=== PATIENT | female | born 1985 | race Caucasian/White ===

== ENCOUNTER 2023-12-02 07:04 | Inpatient (IN) | payer OTHER ==
[~2023-12-02] VITALS: Ht 160 cm; Wt 69.4 kg
[2023-12-02 06:58] VITALS: O2SAT 100
[2023-12-02 07:12] LABS: HCG,QUAL RESULT NEGATIVE (NEGATIVE)
[2023-12-02] MEDS ORDERED: CEFAZOLIN SOD 2 GM in D5W 50 ML IV ONE (07:15)
[2023-12-02] MEDS ORDERED: MEPERIDINE HCL/PF 25 MG/ML DISP.SYRIN IVP PRN (08:15)
[2023-12-02] MEDS ORDERED: hydrALAZINE HCL 20 MG/ML VIAL IVP PRN (08:15)
[2023-12-02] MEDS ORDERED: LR 1,000 ML IV SCH (08:15)
[2023-12-02] MEDS ORDERED: LABETALOL 100 MG/ 20ML VIAL IVP PRN (08:15)
[2023-12-02] MEDS ORDERED: ACETAMINOPHEN I.V. 1000 MG 100 ML IV ONE (08:39)
[2023-12-02] MEDS ORDERED: HYDROcodone/ACETAMIN 5-325 MG TAB (NORCO/ VICODIN) PO PRN (09:15)
[2023-12-02] MEDS ORDERED: NALOXONE HCL 0.4 MG/ML AMP (NARCAN) IVP PRN ×2 (09:15)
[2023-12-02] MEDS ORDERED: D5/0.45 NS 1,000 ML IV SCH (09:15)
[2023-12-02] MEDS ORDERED: DEXAMETHASONE SOD PHOSPHATE 4 MG/ML VIAL ONE (09:17)
[2023-12-02] MEDS ORDERED: SUGAMMADEX SODIUM 200 MG/2 ML VIAL IV ONE (09:17)
[2023-12-02] MEDS ORDERED: HYDROmorphone 1 MG/ML INJ. CARTRIDGE ONE ×2 (09:32→10:17)
[2023-12-02] MEDS: METOCLOPRAMIDE HCL 10 MG/2 ML VIAL IVP PRN (09:40)
[2023-12-02] MEDS ORDERED: METOCLOPRAMIDE HCL 10 MG/2 ML VIAL ONE (09:40)
[2023-12-02] MEDS: HYDROmorphone 1 MG/ML INJ. CARTRIDGE IVP PRN ×2 (09:48→10:18)
[2023-12-02] MEDS ORDERED: HYDROcodone/ACETAMIN 5-325 MG TAB (NORCO/ VICODIN) ONE (12:22)
[2023-12-02] MEDS: HYDROcodone/ACETAMIN 5-325 MG TAB (NORCO/ VICODIN) PO PRN (12:22)
[2023-12-02 13:13] VITALS: BP_SYST 105; PULSE 72; RESP 17
== END 2023-12-03 12:39 | disposition home or self-care (01) | DRG 419 ==
LOC: SMU 07:04 → EDSTATUS 07:30
PROVIDERS: ADMIT Colon & Rectal Surgery; ATTEND Colon & Rectal Surgery
PROC: 0DNW3ZZ Release Peritoneum, Percutaneous Approach (ICD-10-PCS; 2023-12-02)
PROC: BF131ZZ Fluoroscopy of Gallbladder and Bile Ducts using Low Osmolar Contrast (ICD-10-PCS; 2023-12-02)
PROC: 0FT44ZZ Resection of Gallbladder, Percutaneous Endoscopic Approach (ICD-10-PCS; principal; 2023-12-02 07:41)
DX: K80.10 Calculus of gallbladder with chronic cholecystitis without obstruction (principal); K66.0 Peritoneal adhesions (postprocedural) (postinfection); Z79.899 Other long term (current) drug therapy
CPT/HCPCS: 76000; 84703; 87081; 88304; C1727; C1758; J0131; J0690; J1100; J1170; J1885; J2001; J2405; J2704; J2765; J3010; J3465; J3490; J7060; Q9967

== ENCOUNTER 2023-12-09 04:13 | Observation (INO) | payer OTHER ==
[~2023-12-09] VITALS: Ht 160 cm; Wt 69.4 kg
[2023-12-09 04:19] VITALS: BP_SYST 149; PULSE 75; RESP 20; TEMP 98.3; O2SAT 99
[2023-12-09] MEDS: NACL 0.9% 1,000 ML IV ONE (04:40)
[2023-12-09] MEDS: MORPHINE 4 MG INJ. 4 MG/ML VIAL IVP ONE ×2 (04:41→06:25)
[2023-12-09] MEDS: ONDANSETRON HCL 4 MG/2 ML VIAL IVP ONE ×2 (04:41→06:24)
[2023-12-09 04:42] LABS: BASOPHILS % (AUTO) 0.4 % (0.0-2.0); EOSINOPHILS # (AUTO) 0.1 K/uL (0.0-0.4); HEMATOCRIT 36.7 % (36-48); HEMOGLOBIN 12.3 g/dL (12.0-16.0); LYMPHOCYTES # (AUTO) 1.9 K/uL (1.0-5.5); LYMPHOCYTES % (AUTO) 31.4 % (20.5-51.5); MEAN CORPUSCULAR HEMOGLOBIN 28 pg (27-31); MEAN CORPUSCULAR HGB CONC 33 % (32-36); MEAN CORPUSCULAR VOLUME 83 fL (79.0-98.0); MONOCYTES # (AUTO) 0.4 K/uL (0.0-1.0); MONOCYTES % (AUTO) 6.1 % (1.7-9.3); NEUTROPHILS # (AUTO) 3.6 K/uL (1.8-7.7); NEUTROPHILS % (AUTO) 61.1 % (40.0-70.0); PLATELET COUNT (AUTO) 192 K/uL (130-430); RED BLOOD CELL COUNT(AUTO) 4.44 MIL/uL (4.2-6.2); RED CELL DISTRIBUTION WIDTH 15.2 % (9.0-15.0); WHITE BLOOD COUNT (AUTO) 5.9 K/uL (4.8-10.8)
[2023-12-09 06:17] LABS: ALBUMIN 3.8 g/dL (3.4-4.8); BILIRUBIN,DIRECT 0.4 mg/dL (0.0-0.3); CREATININE 0.72 mg/dL (0.55-1.30); POTASSIUM 3.7 mmol/L (3.5-5.1); TOTAL BILIRUBIN 1.1 mg/dL (0.0-1.0); TOTAL PROTEIN, SERUM 7.5 g/dL (6.4-8.3)
[2023-12-09] MEDS ORDERED: ACETAMINOPHEN 325 MG TABLET PO PRN (10:30)
[2023-12-09] MEDS ORDERED: HYDROmorphone 1 MG/ML INJ. CARTRIDGE IVP PRN (10:30)
[2023-12-09] MEDS ORDERED: HYDROcodone/ACETAMIN 5-325 MG TAB (NORCO/ VICODIN) PO PRN (10:30)
[2023-12-09] MEDS: D5/0.45 NS 1,000 ML IV SCH (12:50)
[2023-12-09 12:57] VITALS: BP_SYST 135; PULSE 59; RESP 16; TEMP 97.9
[2023-12-09 13:14] VITALS: O2SAT 98
[2023-12-09] MEDS: ONDANSETRON HCL 4 MG/2 ML VIAL IVP PRN (13:39)
[2023-12-09 16:00] VITALS: BP_SYST 135; PULSE 60; RESP 16; TEMP 97.9; O2SAT 99
[2023-12-09 19:00] VITALS: O2SAT 99
[2023-12-09 20:00] VITALS: BP_SYST 118; PULSE 69; RESP 18; TEMP 98.8; O2SAT 99
[2023-12-09] MEDS: HYDROcodone/ACETAMIN 5-325 MG TAB (NORCO/ VICODIN) PO PRN (21:24)
[2023-12-09] MEDS: FAMOTIDINE PF 20 MG/2 ML VIAL IVP SCH (21:50)
[2023-12-10] VITALS: BP_SYST 121; PULSE 71; RESP 16; TEMP 98.1; O2SAT 99
[2023-12-10 05:32] LABS: BASOPHILS % (AUTO) 0.5 % (0.0-2.0); EOSINOPHILS # (AUTO) 0.1 K/uL (0.0-0.4); EOSINOPHILS % (AUTO) 1.7 % (0.0-4.0); HEMATOCRIT 34.8 % (36-48); HEMOGLOBIN 11.5 g/dL (12.0-16.0); LYMPHOCYTES # (AUTO) 1.3 K/uL (1.0-5.5); LYMPHOCYTES % (AUTO) 29.4 % (20.5-51.5); MEAN CORPUSCULAR HEMOGLOBIN 27 pg (27-31); MEAN CORPUSCULAR HGB CONC 33 % (32-36); MEAN CORPUSCULAR VOLUME 83 fL (79.0-98.0); MONOCYTES # (AUTO) 0.3 K/uL (0.0-1.0); NEUTROPHILS # (AUTO) 2.8 K/uL (1.8-7.7); NEUTROPHILS % (AUTO) 61.4 % (40.0-70.0); PLATELET COUNT (AUTO) 180 K/uL (130-430); RED BLOOD CELL COUNT(AUTO) 4.19 MIL/uL (4.2-6.2); RED CELL DISTRIBUTION WIDTH 14.8 % (9.0-15.0); WHITE BLOOD COUNT (AUTO) 4.6 K/uL (4.8-10.8)
[2023-12-10 05:51] LABS: ALBUMIN 3.2 g/dL (3.4-4.8); CALCIUM 8.5 mg/dL (8.4-11.0); CREATININE 0.64 mg/dL (0.55-1.30); TOTAL BILIRUBIN 0.7 mg/dL (0.0-1.0); TOTAL PROTEIN, SERUM 6.6 g/dL (6.4-8.3)
[2023-12-10 08:29] VITALS: BP_SYST 117; PULSE 72; RESP 16; TEMP 97.9; O2SAT 100
[2023-12-10 09:07] VITALS: BP_SYST 117; PULSE 72; RESP 16; TEMP 97.9; O2SAT 98
[2023-12-10 10:00] VITALS: O2SAT 100
== END 2023-12-10 11:45 | disposition home or self-care (01) ==
LOC: SED 04:13 → SMU 10:29
PROVIDERS: ADMIT Colon & Rectal Surgery; ATTEND Colon & Rectal Surgery
DX: K85.90 Acute pancreatitis without necrosis or infection, unspecified (principal); R74.01 Elevation of levels of liver transaminase levels; G89.18 Other acute postprocedural pain; R10.10 Upper abdominal pain, unspecified; Z90.49 Acquired absence of other specified parts of digestive tract; Z79.899 Other long term (current) drug therapy
CPT/HCPCS: 96361 ×2; 96374; 96375; 96376 ×2; 80076; 80048; 83690 ×2; 85025 ×2; 87081; 36415 ×2; 74177; 99285; 80053; J2405; J2270; Q9967; G0378 ×2; J3490